=== PATIENT | female | born 2005 | race Caucasian/White ===

== ENCOUNTER 2025-03-29 10:34 | Outpatient (AMB) | payer MEDICAID, SELFPAY ==
[2025-03-29 11:07] VITALS: BP 111/77; PULSE 88; RESP 16; TEMP 36.6; O2SAT 96; BMI 31.3
--- NOTE | 2025-03-29 11:07 | OBCLNT_ITS ---
Vital Signs 03/29/25 11:07 Height 1.63 m Height Method Stated Weight 82.781 kg Weight Measurement Method Standing Scale BMI 31.3 BP 111/77 Blood Pressure Source Automatic Cuff Blood Pressure Location Left Upper Arm Position Sitting Respiration 16 Pulse 88 Pulse Source Monitor Temp 97.8 F Temp Source Oral Pulse Oximetry (%) 96 Oxygen Delivery Method Room Air Allergies/Home Meds Allergies & Medications Allergies No Known Allergies Allergy (Verified 03/29/25 11:08) Medication Reconciliation No Known Home Medications 03/29/25 [History Confirmed 03/29/25] Intake Visit Data Collection New Patient or Established: Established Patient (seen at [facility] within 3 years) Reason for Visit:: TRANSFER INITIAL CARE Seen by Clinical Staff ONLY (RN/MA): No Scale Adjuster Required: No Do You Feel Safe at Home: Yes Authorities Contacted: N/A PCP or OBGYN visit in last 3 months: Yes Hx Now: Yes Are you currently on any form of Control: No Last menstrual period: 07/03/24 Pain Present Currently: No Pain Scale Used: Burns-Baer/Numerical Pain scale:: 0 Smoking Status Smoking Status: Never smoker Immunizations Flu Vaccine in the Last 12 Months: No Flu Vaccine Exclusion Criteria: Refused by Patient Questionnaires Covid-19 Vaccine Questionnaire Has patient been vacinated for Covid-19 Have you been vacinated for Covid-19: No PHQ-9 PHQ-2 Over the last 2 weeks, how often have you been bothered by any of the following problems? 1. Little interest or pleasure in doing things: not at all 2. Feeling down, depressed, or hopeless: not at all Total score: 0 PHQ-9 3. Trouble falling or staying asleep, or sleeping too much: Not at all 4. Feeling tired or having little energy: Not at all 5. Poor appetite or overeating: Not at all 6. Feeling bad about yourself - or that you are a failure or have let yourself or your family down: Not at all 7. Trouble concentrating on things, such as reading the newspaper or watching television: Not at all 8. Moving or speaking so slowly that other people could have noticed? - Or the opposite - being so fidgety or restless that you have been moving around a lot more than usual: not at all 9. Thoughts that you would be better off or of hurting yourself in some way: Not at all Total score: 0 Source: Developed by Drs. Remy Bass, Keely Siddiqi, Alek Grant and colleagues, with an educational deborah from [email or web address]. Depression screen completed yes Social History Living Situation History Lives With: Family Housing: House Tobacco History Smoking Status: Never smoker Second Hand Smoke Exposure: No Alcohol History Alcohol Intake: Never Domestic Abuse History Do You Feel Safe at Home: Yes History of Present Illness HPI Narrative 19-year-old 4 para 1 for OBI. Patient has her records. She was seen Dr. Vale. Patient's last. Was for B20 fifth 2024. And that makes her due date April 10, 2025. First ultrasound was November 26. Patient was 20 weeks and that confirmed her EDC of April 10, 2025. 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 She takes Keppra 500 mg p.o. twice daily. That was just increased by her neurologist. She sees a neurologist in [place] at [place]. Denies surgeries. Patient denies social habits. She reports movement. She denies leaking or bleeding. This patient is O+, antibody screen negative, RPR nonreactive, rubella immune, hepatitis B negative, HIV negative, hep C negative, she is rubella immune. She is GC and Chlamydia negative. Her AFP and NIPT and carrier screens all negative. She did not do a 1 hour GTT. Her A1c was 5.2 GBS is pending. OB Initial Visit OB Flowsheet OB Flowsheet Initial Weight: Not Recorded Date -?-?-?-?-?-?-?-?-?-?-?-?- EGA Weight BP Alb Glu CTX Pres Fundal ht FHR Mov Dilation Station Effacement Hx Notes Visit Note 03/29/25 -?-?-?-?-?-?-?-?-?-?-?-?- 38w 3d 82.781 kg 111/77 occasional cephalic 37 145 active 19-year-old gravid 4 para 1 for OBI. Patient was a transfer from Dr. Bustillo's office with records. She has a history of stress seizures. This started 2 years ago. She has been taking Keppra for the last year and she takes 500 twice daily. Patient's last seizure was yesterday. When she gets her seizures she has an au ra and then her eyes starts and she makes the nose noise like hiccuping and then she will lose consciousness for less than a minute. Patient sees the neurologist that out [facility] in [place]. She just saw him 3 weeks ago and her Keppra was increased. Denies social habits. Denies surgery. Denies chronic illness. Denies leaking, bleeding. Occasional contraction reports good movement 19-year-old gravid 4 para 1 for OBI. Patient was a transfer from Dr. Bustillo's office with records. She has a history of stress seizures.PNES This started 2 years ago. She has been taking Keppra for the last year and she takes 500 twice daily. Patient's last seizure was yesterday. When she gets her seizures she has an aura and then her eyes starts and she makes the nose noise like hiccuping and then she will lose consciousness for less than a minute. Patient sees the neurologist that out [facility] in [place]. She just saw him 3 weeks ago and her Keppra was increased. Denies social habits. Denies surgery. Denies chronic illness. Denies leaking, bleeding. Occasional contraction reports good movement GBS today. Cont inue Keppra 500 p.o. twice daily continue to be aware of seizures and monitor them. Reports continued movement kick count labor precautions discussed. Patient to be scheduled for induction at 39 weeks. She will follow-up with her neurologist in [place]. Return in a week OB check GBS today. Continue Keppra 500 p.o. twice daily continue to be aware of seizures and monitor them. Reports continued movement kick count labor precautions discussed. Patient to be scheduled for induction at 39 weeks. She will follow-up with her neurologist in [place]. Return in a week OB check. Schedule IOL 04/02/25 Menstrual History Menstrual reliability: definite Flow: normal Menstrual regularity: regular Monthly: Yes Age at menarche: 12 On control pills at conception: No Associated symptoms (LMP): Denies amenorrhea, nausea, vomiting, fatigue, breast tenderness, urinary frequency, irritability, bloating or other OB History : 4 Para: 1 Hx Total # of Abortions (Spontaneous & Elective): 2 # of Living Children: 1 Delivery History 1st : Child's name: AMY date: 10/18/22 sex: female Gestational age at delivery (weeks): 35 Delivery type: vaginal Delivery complications: NONE History of depression before or after : No Infection History & Risk Evaluation History of STDs: none Genetic Screening & History Genetic Screening/Teratology Counseling - Includes patient, baby's father, or anyone in either family with: 1. Patient's age 35 years or older as of estimated date of delivery: No 2. Thalassemia (Swedish, Icelandic, Mediterranean, or Background); MCV less than 80: No 3. Neural Tube Defect (Meningomyelocele, Spina Bifida, or Anencephaly): No 4. Congenital Heart Defect: No 5. Down Syndrome: No 6. Per-Sachs (Ashkenazi Episcopalian, Cajun, [place]an Serbian): No 7. Bladimir Disease (Ashkenazi Episcopalian): No 8. Familial Dysautonomia (Ashkenazi Episcopalian): No 9. Sickle Cell Disease or Trait (): No 10. Hemophilia or other blood disorders: No 11. Muscular Dystrophy: No 12. Cystic Fibrosis: No 13. [place]'s Chorea: No 14. Mental Retardation/Autism: Yes (BROTHERS) 15. Other inherited genetic or chromosomal disorder: No 16. Maternal Metabolic Disorder (EG,TYPE 1 Diabetes, PKU): No 17. Patient or baby's father had a child with defects not listed above: No 18. Recurrent loss or a stillbirth: No 19. Medications (including supplements, vitamins, herbs or otc drugs)/illicit/recreational drugs/alcohol since last menstrual period: No 20. Any other: No Infection History 1. Live with someone with TB or exposed to TB: No 2. Rash or viral illness since last menstrual period: No 3. Hepatitis B,C: No Other (see comments) Source: [employer] [place] [employer] Review of Systems Constitutional Constitutional: Denies fatigue Gastrointestinal Gastrointestinal: Denies bloating, Denies nausea and Denies vomiting Genitourinary Genitourinary: Denies amenorrhea and Denies urinary frequency Psychiatric Psychiatric: Denies irritability Endocrine Endocrine: Denies fatigue Exam General Limitations: no limitations General Appearance: alert, in no apparent distress, comfortable, cooperative, healthy appearing, well developed and well groomed Head Head exam: atraumatic, normocephalic and normal inspection ENT ENT exam: Present normal exam, normal oropharynx and mucous membranes moist Neck Neck exam: Present normal inspection, full ROM and trachea midline Chest Chest inspection: Present normal inspection and symmetric chest wall rise Resp Respiratory exam: Present normal lung sounds bilaterally Card Cardiovascular exam: Present regular rate, normal rhythm and normal heart sounds Neuro Neurological exam: Present alert, oriented X3 and CN II-XII intact Office Procedures OBC Clinic LOC & Office Proc's Nursing/Assessment Patient Status: Established Patient OB Clinic Nursing Assessment: Medication Reconciliation, Update PMH in EMR and Vital Signs OB Clinic Coordination of Care: Complex Care and Chronic Disease 1-5, Consent,records obtained, informed consent, Education Simp Pt/Fam, 1 Ins Authorization, Lab and Imaging orders, Results/Orders obtained and Staff clarify orders Special Needs: Heart tones Established Patient Charge Established Patient Point Assignment: 150 Established Patient Point Charge: EP Level 4 (120-155) Assessment & Plan Diagnosis / Problem List (1) Seizure disorder during in third trimester: Status: Acute (2) Encounter for supervision of high risk in third trimester, antepartum: Status: Acute Plan Schedule induction of labor for April 02, 2025. I discussed with patient. Discussed labor precautions and kick count. Continue the Keppra 500 twice daily. And we discussed are and signs of impending seizure. Discussed labor precautions and information on induction of labor was given return Tuesday for follow-up OB to Additional Plan Follow Up: 4 Days (obc)
== END 2025-03-29 11:41 | disposition home or self-care (01) ==
LOC: HODSOBC 10:34
PROVIDERS: Supervising Provider Advanced Practice Midwife; Visit Provider Advanced Practice Midwife
DX: O09.893 Supervision of other high risk pregnancies, third trimester (principal); O99.353 Diseases of the nervous system complicating pregnancy, third trimester; G40.909 Epilepsy, unspecified, not intractable, without status epilepticus; Z3A.38 38 weeks gestation of pregnancy; Z79.899 Other long term (current) drug therapy
CPT/HCPCS: 99214; G0463

== ENCOUNTER 2025-04-01 14:07 | Outpatient (AMB) | payer MEDICAID, SELFPAY ==
[2025-04-01 14:21] VITALS: BP 110/76; PULSE 83; RESP 16; TEMP 36.6; O2SAT 97; BMI 30.9
--- NOTE | 2025-04-01 14:21 | OBCLNT_ITS ---
Vital Signs 04/01/25 14:21 Height 1.63 m Height Method Stated Weight 82.1 kg Weight Measurement Method Standing Scale BMI 30.9 BP 110/76 Blood Pressure Source Automatic Cuff Blood Pressure Location Left Upper Arm Position Sitting Respiration 16 Pulse 83 Pulse Source Monitor Temp 98 F Temp Source Oral Pulse Oximetry (%) 97 Oxygen Delivery Method Room Air Allergies/Home Meds Allergies & Medications Allergies No Known Allergies Allergy (Verified 04/03/25 11:56) Medication Reconciliation levetiracetam 500 mg tablet 500 mg PO Q12H 04/03/25 [History Confirmed 04/03/25] vits no.179-ferrous fumarate 28 mg-folic acid 800 mcg tablet 1 tab PO QDAY 04/03/25 [History Confirmed 04/03/25] Immunizations Immunizations Flu Vaccine in the Last 12 Months: No Flu Vaccine Exclusion Criteria: Refused by Patient Care OB Visit Log OB Flowsheet Initial Weight: Not Recorded Date -?-?-?-?-?-?-?-?-?-?-?-?- EGA Weight BP Alb Glu CTX Pres Fundal ht FHR Mov Dilation Station Effacement Hx Notes Visit Note 03/29/25 -?-?-?-?-?-?-?-?-?-?-?-?- 38w 3d 82.781 kg 111/77 occasional cephalic 37 145 active 19-year-old gravid 4 para 1 for OBI. Patient was a transfer from Dr. Bustillo's office with records. She has a history of stress seizures. This started 2 years ago. She has been taking Keppra for the last year and she takes 500 twice daily. Patient's last seizure was yesterday. When she gets her seizures she has an aura and then her eyes starts and she makes the nose noise like hiccuping and then she will lose consciousness for less than a minute. Patient sees the neurologist that out [facility] in [place]. She just saw him 3 weeks ago and her Keppra was increased. Denies social habits. Denies surgery. Denies chronic illness. Denies leaking, bleeding. Occasional contraction reports good movement 19-year-old gravid 4 para 1 for OBI. Patient was a transfer from Dr. Bustillo's office with records. She has a history of stress seizures.PNES This started 2 years ago. She has been taking Keppra for the last year and she takes 500 twice daily. Patient's last seizure was yesterday. When she gets her seizures she has an aura and then her eyes starts and she makes the nose noise like hiccuping and then she will lose consciousness for less than a minute. Patient sees the neurologist that out [facility] in [place]. She just saw him 3 weeks ago and her Keppra was increased. Denies social habits. Denies surgery. Denies chronic illness. Denies leaking, bleeding. Occasional contraction reports good movement GBS today. Cont inue Keppra 500 p.o. twice daily continue to be aware of seizures and monitor them. Reports continued movement kick count labor precautions discussed. Patient to be scheduled for induction at 39 weeks. She will follow-up with her neurologist in [place]. Return in a week OB check GBS today. Continue Keppra 500 p.o. twice daily continue to be aware of seizures and monitor them. Reports continued movement kick count labor precautions discussed. Patient to be scheduled for induction at 39 weeks. She will follow-up with her neurologist in [place]. Return in a week OB check. Schedule IOL 04/02/25 04/01/25 -?-?-?-?-?-?-?-?-?-?-?-?- 38w 6d 82.1 kg 110/76 occasional cephalic 37 1 45 active 1 -3 25 sve: L/1/P/-3, soft. Fetus active. Occasional contraction. Patient's last seizure was at yesterday evening denies leaking or bleeding. Reports good movement Scheduled for induction April 02, 2025. Discussed induction with patient. Discussed labor precautions and kick count. Patient to take her Keppra as directed tonight and then tomorrow morning prior to induction. Discussed danger signs symptoms ER precautions and return in a week if undelivered SABA Calculator Estimated Delivery Date Method Current WG Current Estimate 04/09/25 LMP (Certain) 39w 1d Other Estimates 04/03/25 Ultrasound #1 40w 0d 04/12/25 Ultrasound #2 38w 5d 04/10/25 Manual 39w 0d final saba: 04/10, 46% Notes Visit Date: 04/01/25 Last Updated by: Thao Welch CNM A1c: 5.4 GBS- Visit Date: 03/29/25 Last Updated by: Thao Welch CNM O+,abs-,rpr;;nr, rub imm, HBSAG-,HIV-,HC-, gc/ct-, rub imm, NIPT/carrier screen- Siezure disordered.PNES/Stress seizures. Keppra 500 bid Office Procedures OBC Clinic LOC & Office Proc's Nursing/Assessment Patient Status: Established Patient OB Clinic Nursing Assessment: Medication Reconciliation, Update PMH in EMR and Vital Signs OB Clinic Coordination of Care: Complex Care and Chronic Disease 1-5, Consent,records obtained, informed consent, Education Simp Pt/Fam, 1 Ins Autho rization, Lab and Imaging orders, Results/Orders obtained and Staff clarify orders Special Needs: Heart tones Miscellaneous Interventions: Pelvic no cultures Established Patient Charge Established Patient Point Assignment: 160 Established Patient Point Charge: EP Level 5 (160-above) Assessment & Plan Diagnosis / Problem List (1) Encounter for supervision of high risk in third trimester, antepartum: Status: Acute Plan Scheduled for induction of labor April 02, 2025. Discussed labor precautions with patient. Kick count twice a day. Discussed ER precautions and danger signs symptoms.. discuss induction process. rtc 1 week if needed Additional Plan Follow Up: 1 Week (obc)
== END 2025-04-01 15:11 | disposition home or self-care (01) ==
LOC: HODSOBC 14:07
PROVIDERS: Supervising Provider Advanced Practice Midwife; Visit Provider Advanced Practice Midwife
DX: O09.893 Supervision of other high risk pregnancies, third trimester (principal); O99.353 Diseases of the nervous system complicating pregnancy, third trimester; G40.909 Epilepsy, unspecified, not intractable, without status epilepticus; Z28.21 Immunization not carried out because of patient refusal; Z3A.38 38 weeks gestation of pregnancy; Z79.899 Other long term (current) drug therapy
CPT/HCPCS: 99214; 99215; G0463

== ENCOUNTER 2025-04-03 11:40 | Inpatient (IN) | payer MEDICAID, SELFPAY ==
[2025-04-03] VITALS (157 sets, daily range): BP systolic 103–145; BP diastolic 55–93; PULSE 65–113; RESP 16–99; TEMP 36.8–37; O2SAT 84–100; BMI 32.1
[2025-04-03 12:30] LABS: ROM Swab Mixed By: CL; Swb Mxed in Solvent 1 min? Yes
[2025-04-03 12:39] LABS: Rupture of Fetal Membranes Negative (Negative)
--- NOTE | 2025-04-03 13:24 | XR_ITS ---
Examination: Complete OB ultrasound greater than 14 weeks Date and time of exam: April 03, 2025, 1419 hours INDICATIONS: Preop labor evaluation, labor induction today Findings: Viable intrauterine single fetus with single amniotic sac presentation cephalic Cardiac motion 130 bpm Placenta fundal grade 2 Umbilical cord insertion seen Amniotic fluid index 12.6 cm spine maternal right Ovaries obscured by bowel gas. Composite estimated gestational age based on BPD, head circumference, abdominal circumference, femur length is 37 weeks 5 days Estimated weight 3199 g. Survey of intracranial anatomy, spinal anatomy, abdominal anatomy, four-chamber heart performed with no abnormalities identified. Impression: Viable intrauterine gestation cephalic presentation.
[2025-04-03 14:08] LABS: Basophils # (Auto) 0.1 Thou/mm3 (0.0-0.2); Basophils % (Auto) 0 % (0-2.5); Eosinophils # (Auto) 0.1 Thou/mm3 (0.0-0.5); Eosinophils % (Auto) 1 % (0-10); Hematocrit 32.6 % (36.0-46.0); Hemoglobin 10.3 g/dL (12.0-16.0); Immature Granulocytes Auto 0.07 Thou/mm3 (0.00-0.00); Lymphocytes # (Auto) 2.1 Thou/mm3 (1.0-4.8); Lymphocytes % (Auto) 17 % (10-50); Mean Corpuscular HGB Conc 31.6 g/dl (31.0-37.0); Mean Corpuscular Hemoglobin 24.5 pg (25.0-35.0); Mean Corpuscular Volume 77 fL (80-100); Monocytes # (Auto) 1.1 Thou/mm3 (0.0-0.8); Monocytes % (Auto) 10 % (0-12); Neutrophils # (Auto) 8.4 Thou/mm3 (1.8-7.7); Neutrophils % (Auto) 71 % (37-80); Nucleated Red Blood Cell # 0.00 Thou/mm3 (0.00-0.00); Nucleated Red Blood Cell % 0 /100 WBC (0); Platelet Count 324 Thou/mm3 (140-440); RDW Standard Deviation 37.6 fL (36.4-46.3); Red Blood Count 4.21 Miln/mm3 (4.00-5.20); White Blood Count 11.9 Thou/mm3 (3.6-11.0)
[2025-04-03 14:40] LABS: Syphilis Nonreactive (Nonreactive)
[2025-04-03] MEDS: RINGERS LACTATED 1000 ML 1,000 ML 100 ML IV ×3 (17:19→22:04)
[2025-04-03] MEDS: fentaNYL CIT INJ 50 mCg/ML AMP 2ML 100 MCG IVP (18:29)
--- NOTE | 2025-04-03 22:56 | PD.LDHP ---
Documentation for date of: 04/03/25 OB Labor/Induct. HPI History of Present Illness Chief complaint: Induction of labor : 4 Para: 1 Term pregnancies: 1 pregnancies: 0 Living children: 1 History of Abortions: Spontaneous and Elective: 2 History of Vaginal deliveries: 1 History of sections: No History of : No SABA: 04/10/25 Gestational Age (weeks): 39 Gestational Age (days): 0 Indication for induction: medical complication (Seizure disorder on Keppra) History of present illness: The patient is a 19-year-old -0-2-1 status post vaginal delivery 2 years ago with a history of a seizure disorder on Keppra. She had presented to triage earlier today reporting leaking fluid her AmniSure was negative. The patient was ready on the induction schedule coming up soon for a history of a seizure disorder. As patient was already in the hospital she was examined and found to be 2 to 3 cm dilated and offered an induction of labor and excepted. She was admitted and had 50 mcg of Cytotec placed. Her cervix on presentation was 2 to 3 cm dilated, 70% effaced, -2 station with a posterior cervix. Strep screen is negative. care is up-to-date with Thao Welch CNM at the [facility] History of Present Dating criteria: LMP confirmed by 2nd trimester US Adequate Care: Yes Ultrasounds: normal mid trimester US Obstetrical complications: none Medical complications: neurological (PNES: A seizure disorder on Keppra) Labs Maternal Blood Type: O Pos Labs: Negative: RPR, Hepatitis B, Rubella Titre, HIV, Chlamydia, Gonorrhea and Group Beta Strep Past Medical History Surgical History SURGICAL: Negative Section Past Medical History Comments PMH COMMENT: x 1 ETOP x 1 SAB x 1 PNES, a seizure disorder on Keppra Meds Home Medications and Allergies Home Medications ?Medication ?Instructions ?Recorded ?Confirmed ?Type levetiracetam 500 mg tablet 500 mg PO Q12H 04/03/25 04/03/25 History vits no.179-ferrous 1 tab PO QDAY 04/03/25 04/03/25 History fumarate 28 mg-folic acid 800 mcg tablet Allergies Allergy/AdvReac Type Severity Reaction Status Date / Time No Known Allergies Allergy Verified 04/03/25 11:56 OB Exam Physical Exam Vital signs: Temp Pulse Resp BP Pulse Ox O2 Del Method 98.3 F 93 17 130/93 H 100 Room Air 04/03/25 18:58 04/03/25 22:55 04/03/25 18:58 04/03/25 22:55 04/03/25 22:51 04/03/25 18:58 Routine Abdominal Exam Abdominal: Present soft Detailed Labor and Delivery Exam Dilation (cm): 2-3 Cervix position: posterior station: -2 Consistency: soft Presentation: Vertex Membranes: intact monitor accelerations: 15x15 monitor decelerations: None local company intermodal truck driver variability: Moderate (11-25) Contraction frequency (min): Irregular on presentation OB Results Labs 04/03/25 13:35 Labs: Short CBC 04/03/25 Range/Units 13:35 WBC 11.9 H (3.6-11.0) Thou/mm3 Hgb 10.3 L (12.0-16.0) g/dL Hct 32.6 L (36.0-46.0) % Plt Count 324 (140-440) Thou/mm3 OB Assessment & Plan Assessment and Plan (1) Encounter for supervision of high risk in third trimester, antepartum: Status: Acute Assessment and plan: For induction of labor with p.o. Cytotec secondary to seizure disorder in . (2) Seizure disorder during in third trimester: Status: Acute Assessment and plan: Continue Keppra post Additional Plan Induction method: per misoprostol protocol Plan: induction
[2025-04-03] MEDS: OXYTOCIN in NS 20 units 20 UNIT/1,000 ML BAG 125 UNIT IV (23:22)
--- NOTE | 2025-04-03 23:42 | OBDSUM_ITS ---
Data ([place]) Data Hx Section: No Maternal Blood Type: O Pos Rubella Titre: Positive RPR: Non-reactive Labs: Negative: RPR, Hepatitis B, HIV, Chlamydia, Gonorrhea and Group Beta Strep : 4 Term: 1 : 0 Livin Abortions: Spontaneous & Theraputic: 2 Delivery Data ([facility]) Labor Data Initiation of labor: Induction Induction/Augmentation Agent: Cytotec-PO ROM date: 04/03/25 ROM time: 20:48 Amniotic membrane rupture type: Spontaneous Amniotic fluid description: Clear Delivery Data EDC: 04/10/25 EDC calculated by:: LMP/early US confirmation Date of arrival to unit: 04/03/25 Onset of labor date: 04/03/25 Onset of labor time: 20:49 Complete dilation date: 04/03/25 Complete dilation time: 22:18 [place] delivery date: 04/03/25 [place] delivery time: 23:15 Gestational age (weeks): 39 Gestational age (days): 0 Placenta delivery date: 04/03/25 Placenta delivery time: 23:20 Stage 1 total time: Labor - Stage 1 Duration 1 hours and 29 minutes Delivered by: Nadya Jaramillo (OB Clinic) Delivery nurse: Destiney Shepherd RN [place] nurse: Meet Castañeda RN Shale Planer Operator Helper at delivery: No Support person(s) at delivery: FOB Other staff at delivery: Walker Conklin RN Delivery Method Delivery method: Normal Vaginal Delivery Presentation: Vertex position: OA Anesthesia Type Anesthesia Type: Epidural Delivery Room Medications Delivery room medications: Pitocin 20 u IV Placenta Placenta delivery description: Spontaneous Cord blood sent to lab: Yes cord blood collection: Cord Blood Type Episiotomy Episiotomy description: None Lacerations #2: Perineal: 1st degree Periurethral: Right first-degree Perineal repair Sutures used for repair: other (2-0 chromic) EBL Estimated blood loss (ml): 100 Umbilical Cord cord description: 3 Vessels Additional Procedures The patient is a 19-year-old -0-2-1 at 39 weeks admitted for induction of labor secondary to seizure disorder on medications. The patient was 2 to 3 cm dilated and presentation 70% effaced -2 station,she was admitted and given 1 dose of oral Cytotec 50 mcg. She kicked into labor had an epidural. Before the epidural she was 4 cm, she went to complete approximately 1 to 2 hours later at 2218. She labored down and began pushing approximately 2310 and pushed through 2 contractions delivering a liveborn male at 2315. Findings: liveborn male in the SAMMI presentation with no nuchal cord and no meconium. Apgars were 9 and 9 weight was 8 lbs 7 oz. The placenta was complete, spontaneous, grossly normal delivering approximately 5 minutes after the baby delivered. Of note, the baby was vigorous at and placed immediately on mother's chest and delayed cord clamping was performed for 2 to 3 minutes. The cord was then clamped and cut and the baby stayed on mom's chest. After the placenta delivered, the patient's perineum was examined. She sustained a first-degree right periurethral laceration and a first-degree perineal laceration repaired using 2-0 chromic in a normal sterile fashion. Complications were none. Condition: Both mom and were in stable condition in the delivery room. EBL was 100 cc. Complications Complications: None [place] Data ([facility]) Data order: 1 's gender: Male weight (gms): 3827.186 g 1 minute: 9 5 minutes: 9
[2025-04-04] VITALS (29 sets, daily range): BP systolic 99–122; BP diastolic 58–77; PULSE 66–94; RESP 16–18; TEMP 36.4–37.1; O2SAT 96–100
[2025-04-04 00:58] LABS: Amphetamine/Metham Scrn,Ur OB Negative (Negative); Benzoylecgonine Screen, Ur OB Negative (Negative); Opiate Screen,Urine OB Negative (Negative); THC Screen,Urine OB Negative (Negative)
[2025-04-04] MEDS: ONDANSETRON INJ 2 MG/ML INJ 2 ML 4 MG IVP (01:19)
[2025-04-04] MEDS: IBUPROFEN TAB 400 MG TABLET 800 MG PO ×2 (01:20→09:11)
[2025-04-04] MEDS: BENZO/LANO/ALOE (Dermoplast) 60 GM CAN 1 SPRAY TOP (01:21)
[2025-04-04 06:01] LABS: Basophils # (Auto) 0.0 Thou/mm3 (0.0-0.2); Basophils % (Auto) 0 % (0-2.5); Eosinophils # (Auto) 0.1 Thou/mm3 (0.0-0.5); Eosinophils % (Auto) 0 % (0-10); Hematocrit 30.5 % (36.0-46.0); Hemoglobin 9.7 g/dL (12.0-16.0); Immature Granulocytes Auto 0.07 Thou/mm3 (0.00-0.00); Lymphocytes # (Auto) 2.4 Thou/mm3 (1.0-4.8); Lymphocytes % (Auto) 15 % (10-50); Mean Corpuscular HGB Conc 31.8 g/dl (31.0-37.0); Mean Corpuscular Hemoglobin 24.9 pg (25.0-35.0); Mean Corpuscular Volume 78 fL (80-100); Monocytes # (Auto) 1.2 Thou/mm3 (0.0-0.8); Monocytes % (Auto) 8 % (0-12); Neutrophils # (Auto) 12.2 Thou/mm3 (1.8-7.7); Neutrophils % (Auto) 76 % (37-80); Nucleated Red Blood Cell # 0.00 Thou/mm3 (0.00-0.00); Nucleated Red Blood Cell % 0 /100 WBC (0); Platelet Count 278 Thou/mm3 (140-440); RDW Standard Deviation 38.2 fL (36.4-46.3); Red Blood Count 3.90 Miln/mm3 (4.00-5.20); White Blood Count 16.0 Thou/mm3 (3.6-11.0)
--- NOTE | 2025-04-04 08:33 | PD.LDPPPRG ---
Subjective Subjective Interval history: Delivery type: , patient has a history of nonepileptic seizures. Patient doing well this morning. No acute complaints. Ambulating, tolerating p.o., and voiding without difficulty. HTN/Pre-E screen negative: No CP, SOB, VIGIL, visual changes, RUQ pain. : No Lochia: diminishing Bowel: Flatus + / BM + UOP: Voiding freely Exam Vital Signs Temp Pulse Resp BP Pulse Ox O2 Del Method 98.5 F 80 16 118/77 96 Room Air 04/04/25 03:14 04/04/25 03:14 04/04/25 03:14 04/04/25 03:14 04/04/25 03:14 04/04/25 03:14 Constitutional Constitutional: no acute distress Routine HEENT Exam Head: Present normocephalic and atraumatic Eye: Present EOMI and PERRL ENT: Present mucous membranes moist Routine Neck Exam Neck: Present supple and trachea midline Routine Respiratory Exam Respiratory: Present chest non-tender, lungs clear, normal breath sounds and no resp distress Routine Cardiovascular Exam Cardiovascular: Present RRR Routine Abdominal Exam Abdominal: Present soft and normoactive bowel sounds Routine Extremities Exam Extremities: Present full ROM Routine Skin Exam Skin: Present intact, dry and warm Routine Neurological Exam Neurological: Present alert, oriented X3 and CN II-XII intact Routine Psychiatric Exam Psychiatric: Present normal affect and normal thought process Objective Labs 04/04/25 05:07 Labs: Laboratory Results - last 24 hr 04/03/25 04/03/25 04/03/25 12:19 13:35 20:40 WBC 11.9 H RBC 4.21 Hgb 10.3 L Hct 32.6 L MCV 77 L MCH 24.5 L MCHC 31.6 RDW Std Deviation 37.6 Plt Count 324 Neut % (Auto) 71 Lymph % (Auto) 17 [place] % (Auto) 10 Eos % (Auto) 1 Baso % (Auto) 0 Neut # (Auto) 8.4 H Lymph # (Auto) 2.1 Hudson # (Auto) 1.1 H Eos # (Auto) 0.1 Baso # (Auto) 0.1 Immature Gran # (Auto) 0.07 H Absolute Nucleated RBC 0.00 Immature Gran % 1 H Nucleated RBC % 0 Membrane Rupture Negative Urine Opiates Screen Negative U Amphetamin/Meth Scrn Negative U Cocaine Metab Screen Negative U Marijuana (THC) Screen Negative Syphilis Serology Nonreactive Blood Type O Positive Antibody Screen NEGATIVE Blood Bank Wristband ID Yes 04/04/25 05:07 WBC 16.0 H RBC 3.90 L Hgb 9.7 L Hct 30.5 L MCV 78 L MCH 24.9 L MCHC 31.8 RDW Std Deviation 38.2 Plt Count 278 D Neut % (Auto) 76 Lymph % (Auto) 15 Hudson % (Auto) 8 Eos % (Auto) 0 Baso % (Auto) 0 Neut # (Auto) 12.2 H Lymph # (Auto) 2.4 Hudson # (Auto) 1.2 H Eos # (Auto) 0.1 Baso # (Auto) 0.0 Immature Gran # (Auto) 0.07 H Absolute Nucleated RBC 0.00 Immature Gran % 0 Nucleated RBC % 0 Membrane Rupture Urine Opiates Screen U Amphetamin/Meth Scrn U Cocaine Metab Screen U Marijuana (THC) Screen Syphilis Serology Blood Type Antibody Screen Blood Bank Wristband ID Assessment & Plan Problem List (1) Encounter for supervision of high risk in third trimester, antepartum: Status: Acute (2) Seizure disorder during in third trimester: Status: Acute (3) Vaginal delivery: Status: Acute Assessment and plan: 1. Continue routine /post-op care 2. Labs reviewed, cbc appropriate 3. Remove dressing/Mendoza 4. Encourage to ambulate, shower 5. Encourage PO intake, breast feeding Time Spent With Patient Time: Total time spent is greater than 50% in coordination of care (as documented) at patient's floor/unit and/or counseling patient:
[2025-04-04] MEDS: DOCUSATE SOD 100 MG CAPSULE PO ×2 (09:11→21:11)
[2025-04-04] MEDS: HYDROcodone/APAP 5/325 TABLET 1 TAB PO (14:06)
[2025-04-04] MEDS: HYDROcodone/APAP 5/325 TABLET 2 TAB PO (21:11)
[2025-04-05] VITALS: BP 98/61; PULSE 73; RESP 15; TEMP 36.8; O2SAT 96
[2025-04-05] MEDS: HYDROcodone/APAP 5/325 TABLET 2 TAB PO (03:54)
[2025-04-05 04:00] VITALS: BP 103/73; PULSE 72; RESP 16; TEMP 36.8; O2SAT 97
[2025-04-05] MEDS: ONDANSETRON INJ 2 MG/ML INJ 2 ML 4 MG IVP (07:10)
[2025-04-05 07:21] VITALS: BP 96/60; PULSE 66; RESP 16; TEMP 36.8; O2SAT 98
--- NOTE | 2025-04-05 07:43 | PC.NURSE ---
Md called at 0743, patient complaining of SOB, and dizziness. MD arrived at bedside at 0745. Patients vital signs all WNL, Bleeding scant fundus firm. New order received
[2025-04-05 07:45] VITALS: BP 101/65; PULSE 79; RESP 16; TEMP 36.8; O2SAT 98
--- NOTE | 2025-04-05 07:48 | XR_ITS ---
EXAMINATION: AP chest single view TECHNIQUE: AP portable upright chest single view Date and time: April 05, 2025, 0819 hours INDICATIONS: Shortness of breath today. FINDINGS: Normal heart size Lungs are clear. Osseous structures are intact IMPRESSION: No active disease
--- NOTE | 2025-04-05 07:48 | EKG_ITS ---
[facility] Test Date: 2025-04-05 Pat Name: ESTHER GALLEGOS [facility] [place]: QUINTON : 2005 Requested By: Brandan Rodrigues Order Number: [id number] Reading MD: Brandan Rodrigues Measurements Intervals [place] Rate: 57 P: 41 NC: 141 QRS: 50 QRSD: 87 T: 24 QT: 404 QTc: 394 Interpretive Statements SINUS BRADYCARDIA POSSIBLE RIGHT VENTRICULAR CONDUCTION DELAY No previous ECG available for comparison /store/S0/[id number].pdf
--- NOTE | 2025-04-05 08:05 | PD.LDPPPRG ---
Subjective Subjective Interval history: Delivery type: I was called in to evaluate patient due to tightness in the chest and shortness of breath, vitals are stable and oxygen saturation is within normal limits. Patient doing well this morning. No acute complaints. Ambulating, tolerating p.o., and voiding without difficulty. HTN/Pre-E screen negative: No CP, VIGIL, visual changes, RUQ pain. : No Lochia: diminishing Bowel: Flatus + / BM + UOP: Voiding freely Exam Vital Signs Temp Pulse Resp BP Pulse Ox O2 Del Method 98.3 F 66 16 96/60 98 Room Air 04/05/25 07:21 04/05/25 07:21 04/05/25 07:21 04/05/25 07:21 04/05/25 07:21 04/05/25 07:21 Constitutional Constitutional: no acute distress Routine HEENT Exam Head: Present normocephalic and atraumatic Eye: Present EOMI and PERRL ENT: Present mucous membranes moist Routine Neck Exam Neck: Present supple and trachea midline Routine Respiratory Exam Respiratory: Present chest non-tender, lungs clear, normal breath sounds and no resp distress Routine Cardiovascular Exam Cardiovascular: Present RRR Routine Abdominal Exam Abdominal: Present soft and normoactive bowel sounds Routine Extremities Exam Extremities: Present full ROM Routine Skin Exam Skin: Present intact, dry and warm Routine Neurological Exam Neurological: Present alert, oriented X3 and CN II-XII intact Routine Psychiatric Exam Psychiatric: Present normal affect and normal thought process Objective Labs 04/04/25 05:07 Assessment & Plan Problem List (1) Encounter for supervision of high risk in third trimester, antepartum: Status: Acute (2) Seizure disorder during in third trimester: Status: Acute (3) Vaginal delivery: Status: Acute Assessment and plan: PPD/POD#2 1. Continue routine care 2. Transition to PO meds. 3. Encourage to ambulate/ breast-feed 4. Chest x-ray EKG ordered. CBC and CMP ordered. 5. Anticipate discharge home later today Time Spent With Patient Time: Total time spent is greater than 50% in coordination of care (as documented) at patient's floor/unit and/or counseling patient:
--- NOTE | 2025-04-05 08:06 | PD.LDDS ---
DS: Providers Provider Date of admission: 04/03/25 13:18 Primary care physician: Physician No Primary/Family Admitting Provider: Nadya Jaramillo MD ([facility]) Attending Provider on Admission: Brandan Rodrigues MD Consults: 04/03/25 23:40 Referral Routine Comment: Attending Provider on DC: Brandan Rodrigues MD Discharging Provider: Brandan Rodrigues MD DS: Diagnosis Discharge Diagnosis (1) Seizure disorder during in third trimester: Status: Acute (2) Chronic hypertension affecting : Status: Acute (3) Vaginal delivery: Status: Acute Problem List Completed Was Problem List Reviewed/Reconciled?: Yes Summary/Hosp Course Brief History: The patient is a 19-year-old -0-2-1 status post vaginal delivery 2 years ago with a history of a seizure disorder on Keppra. She had presented to triage earlier today reporting leaking fluid her AmniSure was negative. The patient was ready on the induction schedule coming up soon for a history of a seizure disorder. As patient was already in the hospital she was examined and found to be 2 to 3 cm dilated and offered an induction of labor and excepted. She was admitted and had 50 mcg of Cytotec placed. Her cervix on presentation was 2 to 3 cm dilated, 70% effaced, -2 station with a posterior cervix. Strep screen is negative. care is up-to-date with Thao Welch CNM at the [facility] Peripartum Data Delivery Method: Normal Vaginal Delivery Episiotomy Description: None Time Spent with Patient Time attestation: Total time spent providing and/or coordinating discharge services: Exam Vital Signs Temp Pulse Resp BP Pulse Ox O2 Del Method 98.3 F 66 16 96/60 98 Room Air 04/05/25 07:21 04/05/25 07:21 04/05/25 07:21 04/05/25 07:21 04/05/25 07:21 04/05/25 07:21 Discharge Plan Plan Patient Disposition: HOME (Self Care) Disposition Comment: Call Dr Vale for appt in 3 weeks Patient condition on transfer: Stable Prescriptions/Referrals Prescriptions/Med Rec: New docusate sodium [Stool Softener] 100 mg capsule 100 mg PO QDAY 30 Days Qty: 30 0RF ibuprofen 600 mg tablet 600 mg PO Q6H MDD 4 PRN (Reason: fever or pain) 10 Days Qty: 40 0RF Continued levetiracetam 500 mg tablet 500 mg PO Q12H Patient Comments: TAKE 1 TABLET BY MOUTH TWICE A DAY vit no.[id number] 28 mg iron- 800 mcg tablet 1 tab PO QDAY Patient Comments: TAKE 1 TABLET BY MOUTH EVERY DAY Referrals: No Primary/Family,Physician [Primary Care Provider] Madhav Vale MD [Referring Provider, Obstetrics] Patient/Caregiver Discharge Instructions Meds to Beds: Yes Education Materials: After a Vaginal , After Delivery [place] Concerns, : Caring for Yourself Print Language: Lebanese Stand Alone Forms: Monica Award Info., Patient Portal Info Letter Planned Discharge Date 04/05/25
[2025-04-05] MEDS: IBUPROFEN TAB 400 MG TABLET 800 MG PO ×2 (08:29→16:38)
[2025-04-05 09:38] LABS: Basophils # (Auto) 0.1 Thou/mm3 (0.0-0.2); Basophils % (Auto) 1 % (0-2.5); Eosinophils # (Auto) 0.2 Thou/mm3 (0.0-0.5); Eosinophils % (Auto) 2 % (0-10); Hematocrit 32.3 % (36.0-46.0); Hemoglobin 10.2 g/dL (12.0-16.0); Immature Granulocytes Auto 0.05 Thou/mm3 (0.00-0.00); Lymphocytes # (Auto) 3.1 Thou/mm3 (1.0-4.8); Lymphocytes % (Auto) 26 % (10-50); Mean Corpuscular HGB Conc 31.6 g/dl (31.0-37.0); Mean Corpuscular Hemoglobin 24.8 pg (25.0-35.0); Mean Corpuscular Volume 78 fL (80-100); Monocytes # (Auto) 0.8 Thou/mm3 (0.0-0.8); Monocytes % (Auto) 7 % (0-12); Neutrophils # (Auto) 7.5 Thou/mm3 (1.8-7.7); Neutrophils % (Auto) 65 % (37-80); Nucleated Red Blood Cell # 0.00 Thou/mm3 (0.00-0.00); Nucleated Red Blood Cell % 0 /100 WBC (0); Platelet Count 285 Thou/mm3 (140-440); RDW Standard Deviation 39.3 fL (36.4-46.3); Red Blood Count 4.12 Miln/mm3 (4.00-5.20); White Blood Count 11.7 Thou/mm3 (3.6-11.0)
[2025-04-05 10:02] LABS: Alanine Aminotransferase 11 U/L (10-49); Albumin, Serum 3.6 gm/dL (3.5-5.0); Albumin/Globulin Ratio 1.7 (1.2-2.2); Alkaline Phosphatase 124 U/L (46-116); Anion Gap 10 (7-16); Aspartate Amino Transferase 23 U/L (0-34); BUN/Creatinine Ratio 13 Ratio (12-20); Bilirubin,Total 0.3 mg/dL (0.3-1.2); Blood Urea Nitrogen 8 mg/dL (9-23); Calcium 8.6 mg/dL (8.3-10.6); Calcium (Corrected) 8.9 mg/dL (8.5-10.1); Carbon Dioxide 28.4 mMol/L (20.0-31.0); Chloride 104 mMol/L (98-107); Creatinine (Component) 0.6 mg/dL (0.6-1.3); Estimated Creatinine Clearance 156.3 mL/min (>60); Globulin 2.1 gm/dL (2.3-3.5); Glucose 98 mg/dL (74-106); Osmolality,Calculated 281 (275-295); Potassium 3.6 mMol/L (3.4-5.1); Sodium 142 mMol/L (136-145); Total Protein 5.7 gm/dL (5.7-8.2); eGFR > 60 See Note
[2025-04-05] MEDS: HYDROcodone/APAP 5/325 TABLET 1 TAB PO (10:50)
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
[2025-04-05] MEDS: ACETAMINOPHEN 325 MG TABLET 650 MG PO ×2 (15:26→19:34)
[2025-04-05 15:39] VITALS: BP 123/79; PULSE 70; RESP 18; TEMP 36.7; O2SAT 98
[2025-04-05 19:25] VITALS: BP 102/65; PULSE 81; RESP 16; TEMP 36.9; O2SAT 97
[2025-04-05] MEDS: DOCUSATE SOD 100 MG CAPSULE PO (21:57)
--- NOTE | 2025-04-06 08:06 | PC.SS ---
Accessed chart to input note from RAMA Delgado contact 04/05/25 at 1391. Sandy inquired about discharge plan and SCAR. Explained to Sandy a SCAR was made to CWS SW and if they determined an emergent response to bedside was needed, they would have notified SS before the end of shift at 1700. Sandy stated she would be discharging patient and infant home.
--- NOTE | 2025-04-09 09:56 | PC.SS ---
SENIOR LEAD JAVA DEVELOPER received follow up phone call from S staff, Eve Goetz; requesting update on patient's discharge disposition. SENIOR LEAD JAVA DEVELOPER relayed that patient discharged home on 04-05-25.
== END 2025-04-05 22:39 | disposition home or self-care (01) | DRG 560 ==
LOC: S4SX 14:16 → S4NX 04-04 02:30
PROVIDERS: Admitting Provider Obstetrics & Gynecology; Visit Provider Obstetrics & Gynecology
DX: O99.892 Other specified diseases and conditions complicating childbirth (principal); R56.9 Unspecified convulsions; O70.0 First degree perineal laceration during delivery; Z3A.39 39 weeks gestation of pregnancy; Z37.0 Single live birth; Z79.899 Other long term (current) drug therapy
CPT/HCPCS: 36415; 59025; 59409; 71045; 76805; 80053; 80307; 81025; 82570; 83615; 83880; 84112; 84156; 84484; 84550; 85025; 85610; 85730; 86780; 86850; 86900; 86901; 93005; 94762; J2405; J2590; J2795; J3010; J7120; A9270